=== PATIENT | male | born 1955 | race Caucasian/White ===

== ENCOUNTER → 2018-02-04 | Outpatient (CLI) | payer BC | LOC: WOUNDCARE 09:27 | PROVIDERS: ATTEND Surgery | DX: L97.212 Non-pressure chronic ulcer of right calf with fat layer exposed (principal); S81.811D Laceration without foreign body, right lower leg, subsequent encounter; E66.01 Morbid (severe) obesity due to excess calories; Z68.36 Body mass index [BMI] 36.0-36.9, adult | CPT/HCPCS: 11042; 87070; 87075; 87205 ==

== ENCOUNTER → 2018-02-09 | Outpatient (CLI) | payer BC | LOC: WOUNDCARE 08:19 | PROVIDERS: ATTEND Surgery | DX: I87.311 Chronic venous hypertension (idiopathic) with ulcer of right lower extremity (principal); L97.212 Non-pressure chronic ulcer of right calf with fat layer exposed; S81.811D Laceration without foreign body, right lower leg, subsequent encounter; E66.01 Morbid (severe) obesity due to excess calories; Z68.36 Body mass index [BMI] 36.0-36.9, adult | CPT/HCPCS: 11042 ==

== ENCOUNTER → 2018-02-15 | Outpatient (CLI) | payer BC | LOC: WOUNDCARE 12:31 | PROVIDERS: ATTEND Surgery | DX: S81.811D Laceration without foreign body, right lower leg, subsequent encounter (principal); L97.212 Non-pressure chronic ulcer of right calf with fat layer exposed; E66.01 Morbid (severe) obesity due to excess calories; Z68.36 Body mass index [BMI] 36.0-36.9, adult ==

== ENCOUNTER → 2018-02-16 | Outpatient (CLI) | payer BC | LOC: WOUNDCARE 08:00 | PROVIDERS: ATTEND Nurse Practitioner | DX: L97.212 Non-pressure chronic ulcer of right calf with fat layer exposed (principal); S81.811A Laceration without foreign body, right lower leg, initial encounter; E66.01 Morbid (severe) obesity due to excess calories | CPT/HCPCS: 11042; 87070; 87075; 87077; 87205 ==

== ENCOUNTER → 2018-02-19 | Outpatient (CLI) | payer BC | LOC: WOUNDCARE 08:09 | PROVIDERS: ATTEND Surgery | DX: L97.212 Non-pressure chronic ulcer of right calf with fat layer exposed (principal); E66.01 Morbid (severe) obesity due to excess calories; S81.811D Laceration without foreign body, right lower leg, subsequent encounter | CPT/HCPCS: 29581 ==

== ENCOUNTER → 2018-02-23 | Outpatient (CLI) | payer BC | LOC: WOUNDCARE 08:09 | PROVIDERS: ATTEND Nurse Practitioner | DX: L97.212 Non-pressure chronic ulcer of right calf with fat layer exposed (principal); S81.811A Laceration without foreign body, right lower leg, initial encounter; E66.01 Morbid (severe) obesity due to excess calories; I87.331 Chronic venous hypertension (idiopathic) with ulcer and inflammation of right lower extremity | CPT/HCPCS: 11042 ==

== ENCOUNTER → 2018-03-02 | Outpatient (CLI) | payer BC | LOC: WOUNDCARE 08:02 | PROVIDERS: ATTEND Nurse Practitioner | DX: I87.331 Chronic venous hypertension (idiopathic) with ulcer and inflammation of right lower extremity (principal); L97.212 Non-pressure chronic ulcer of right calf with fat layer exposed; S81.811D Laceration without foreign body, right lower leg, subsequent encounter; E66.01 Morbid (severe) obesity due to excess calories; Z68.36 Body mass index [BMI] 36.0-36.9, adult | CPT/HCPCS: 11042 ==

== ENCOUNTER → 2018-03-09 | Outpatient (CLI) | payer BC | LOC: WOUNDCARE 08:09 | PROVIDERS: ATTEND Nurse Practitioner | DX: L97.212 Non-pressure chronic ulcer of right calf with fat layer exposed (principal); S81.811A Laceration without foreign body, right lower leg, initial encounter; E66.01 Morbid (severe) obesity due to excess calories; I87.311 Chronic venous hypertension (idiopathic) with ulcer of right lower extremity | CPT/HCPCS: 11042 ==

== ENCOUNTER → 2018-03-26 | Outpatient (CLI) | payer BC | LOC: WOUNDCARE 08:08 | PROVIDERS: ATTEND Surgery | DX: L97.212 Non-pressure chronic ulcer of right calf with fat layer exposed (principal); S81.811D Laceration without foreign body, right lower leg, subsequent encounter; I87.311 Chronic venous hypertension (idiopathic) with ulcer of right lower extremity | CPT/HCPCS: 99212 ==

== ENCOUNTER → 2021-01-25 | Outpatient (CLI) | payer MEDICARE, OTHER | LOC: CARD 07:43 | PROVIDERS: ATTEND Internal Medicine Cardiovascular Disease | DX: I51.7 Cardiomegaly (principal); I35.8 Other nonrheumatic aortic valve disorders; R94.31 Abnormal electrocardiogram [ECG] [EKG] | CPT/HCPCS: 93306 ==

== ENCOUNTER → 2021-01-31 | Outpatient (CLI) | payer MEDICARE, OTHER ==
[~2021-01-31] VITALS: Ht 175 cm; Wt 110.0 kg
[~2021-01-31] MED LIST: CATHETER FLUSH 10 ML SYR IV PRN
[2021-01-31 09:15] VITALS: BP 128/72
--- NOTE | 2021-01-31 15:58 | Cardiology Stress Test Report ---
Stress Test Report Date of Procedure/Referring: Date of Procedure: Jan 31, 2021 PCP Armando Palacio Jr, MD Admitting Physician Julio Cesar Muñoz DO Indications: Abnormal ECG. Baseline Heart Rate: 64 Baseline Blood Pressure: Blood Pressure Systolic: 128 Blood Pressure Diastolic: 72 Vital Signs Date Time Temp Pulse Resp B/P (MAP) Pulse Ox O2 Delivery O2 Flow Rate FiO2 01/31/21 09:15 75 18 128/72 (90) 98 Room Air Baseline Vital Signs Vital Signs Date Time Temp Pulse Resp B/P (MAP) Pulse Ox O2 Delivery O2 Flow Rate FiO2 01/31/21 09:15 75 18 128/72 (90) 98 Room Air Baseline EKG: Baseline EKG: Sinus rhythm with nonspecific intraventricular conduction delay. Summary: After explaining the procedure and details to the patient, he signed the consent and was brought to the stress nuclear laboratory. STRESS TEST PROCEDURE: The patient was exercised for a total of 10 minutes and 35 seconds of the standard Momo protocol achieving a maximum met level of 11.5. The resting heart rate was 64 bpm and the peak heart rate was 139 bpm, which represents 90% of the maximum predicted heart rate. The resting blood pressure was 131/72 mmHg and the peak blood pressure was 198/55 mmHg. This represents a normal heart rate and blood pressure response to exercise. The test was stopped due to the patient attaining the target heart rate. There was no exercise- induced chest discomfort. There were isolated premature ventricular complexes during the test. There were no stress-induced electrocardiogram changes. The patient exhibited excellent exercise capacity for age. NUCLEAR PROCEDURE: The patient was administered 10.2 mCi of intravenous technetium 99m Myoview at rest for the rest images. The patient was subsequently administered 30 mCi of intravenous technetium 90 9M Myoview at peak stress for the stress images. Following a short wait after each injection, imaging was obtained. The images were subsequently processed and reformatted in the usual views. Gated imaging was obtained. There was a mild degree of gastrointestinal attenuation artifact noted. NUCLEAR RESULTS: There was a moderate sized, moderate intensity, predominantly fixed basal to apical inferior defect with a small amount of inducible ischemia at the apex. The summed stress score was 4 with a summed difference score of 2. The left ventricle was borderline dilated with an end-diastolic volume of 137 mL and an end-systolic volume of 74 mL. There was mild global hypokinesis with a calculated ejection fraction of 46%. There was no evidence of transient ischemic dilatation. The TID ratio was 0.89. Conclusion: 1. Normal heart rate and blood pressure response to exercise. 2. There was no exercise-induced chest discomfort. 3. There were isolated premature ventricular complexes during the test. 4. There were no exercise-induced electrocardiogram changes. 5. The patient exhibited excellent exercise capacity for age at 10 minutes and 35 seconds of the standard Momo protocol. 6. The left ventricle was borderline dilated. 7. There was a moderate sized, moderate intensity, predominantly fixed basal to apical inferior defect with a small amount of inducible ischemia at the apex with a summed stress score of 4 and a summed difference score of 2. 8. There was mild global hypokinesis with a calculated ejection fraction of 46%. ARMANDO PALACIO JR, MD Jan 31, 2021 15:58
== END ==
LOC: CARD 07:45
PROVIDERS: ATTEND Internal Medicine Cardiovascular Disease
DX: R94.31 Abnormal electrocardiogram [ECG] [EKG] (principal)
CPT/HCPCS: 78452; 93017; A9502

== ENCOUNTER 2021-10-14 10:13 | Outpatient (CLI) | payer MEDICARE, OTHER | END 2021-10-14 10:35 | LOC: SLEEP 10:13 | PROVIDERS: ATTEND Otolaryngology Otolaryngology/Facial Plastic Surgery | DX: G47.33 Obstructive sleep apnea (adult) (pediatric) (principal); G47.10 Hypersomnia, unspecified; Z86.16 Personal history of COVID-19; Z86.79 Personal history of other diseases of the circulatory system | CPT/HCPCS: G0399 ==

== ENCOUNTER → 2023-07-06 | Outpatient (CLI) | payer MEDICARE, OTHER ==
--- NOTE | 2023-07-06 09:35 | Diagnostic Imaging Report ---
PROCEDURE: CT chest without contrast. TECHNIQUE: Multiple contiguous axial images were obtained through the chest without the use of intravenous contrast. Auto Exposure Controls were utilized during the CT exam to meet ALARA standards for radiation dose reduction. INDICATION: Thoracic aortic aneurysm. Unenhanced images of the thoracic aorta reveal minimal aortic valvular calcification. The thoracic aorta is of normal caliber. There appears to be 4 vessel branching pattern. There is minimal linear atelectasis or scarring in the right lower lobe. No significant pleural or pericardial fluid is identified. There is no consolidation. Upper abdominal sections reveal what appears to be a dominant septated left renal cyst. This is only partially included on the study. This is a known finding with multiple prior ultrasound evaluations. IMPRESSION: Thoracic aorta is of normal caliber with minimal aortic valvular calcifications. Dictated by: Dictated on workstation # [id number]
== END ==
LOC: RAD 07:45
PROVIDERS: ATTEND Internal Medicine Cardiovascular Disease
DX: I71.20 Thoracic aortic aneurysm, without rupture, unspecified (principal)
CPT/HCPCS: 71250